=== PATIENT | female | born 1955 | race Caucasian/White ===

== ENCOUNTER 2024-10-18 16:19 | Emergency (ER) | payer MEDICARE, BC ==
[~2024-10-18] VITALS: Ht 165.1 cm; Wt 60.8 kg
[2024-10-18 17:51] VITALS: BP 121/88; O2SAT 99
== END 2024-10-18 17:51 | disposition home or self-care (01) ==
LOC: ER 16:28
DX: S09.8XXA Other specified injuries of head, initial encounter (principal); M54.2 Cervicalgia; R41.82 Altered mental status, unspecified; R53.1 Weakness; R53.83 Other fatigue; E78.5 Hyperlipidemia, unspecified; Z88.0 Allergy status to penicillin; W22.8XXA Striking against or struck by other objects, initial encounter; Y93.89 Activity, other specified; Y92.89 Other specified places as the place of occurrence of the external cause; Y99.8 Other external cause status
CPT/HCPCS: 70450; A4606; A4663